=== PATIENT | female | born 1975 | race Caucasian/White ===

== ENCOUNTER 2018-03-20 16:31 | Emergency (ER) | payer BC ==
[2018-03-20 16:54] VITALS: BP 119/69
[2018-03-20] MEDS ORDERED: DEXAMETHASONE SOD PHOS INJ 10 MG/1 ML VIAL IM ONE (17:37)
[2018-03-20] MEDS ORDERED: KETOROLAC TROMETHAMINE INJ/PF 30 MG/1 ML SDV IM ONE (17:37)
--- NOTE | 2018-03-20 18:25 | RADIOLOGY REPORT (SQ) ---
EXAM DESCRIPTION: HIP LEFT AP/LATERAL COMPLETED DATE/TIME: 03/20/2018 6:15 pm REASON FOR STUDY: fall, pain COMPARISON: None. NUMBER OF VIEWS: Two views. TECHNIQUE: AP pelvis and additional frog-leg view of the left hip. LIMITATIONS: None. FINDINGS: MINERALIZATION: Normal. LEFT HIP: No fracture or dislocation. No worrisome bone lesions. RIGHT HIP: No fracture or dislocation. No worrisome bone lesions. PUBIS AND ISCHIUM: No fracture. PELVIS: No fracture. SACRUM: No fracture or dislocation. No worrisome bone lesions. LOWER LUMBAR SPINE: No fracture or dislocation. No worrisome bone lesions. No significant disc disea se. SOFT TISSUES: No findings. OTHER: No other significant finding. IMPRESSION: NEGATIVE STUDY OF THE LEFT HIP AND PELVIS. NO RADIOGRAPHIC EVIDENCE OF ACUTE INJURY. TECHNICAL DOCUMENTATION: JOB ID: [id number] [employer]- All Rights Reserved Reading location - IP/workstation name: [email or web address]
--- NOTE | 2018-03-20 19:02 | ER Document Report ---
ED Hip Pain/Injury - General Chief Complaint: Hip Pain Stated Complaint: FALL/HIP PAIN Time Seen by Provider: 03/20/18 17:26 Notes: Patient is a healthy 42-year-old female complaining of left hip pain 1 month. Patient reports that she was riding a half her board when she fell backwards landing on her left buttock and hip. Patient has been having pain since the fall. Pain is exaggerated with any hip movement. She has had no fever, no radiculopathy, no bowel or bladder change. No previous history of back pain TRAVEL OUTSIDE OF THE [place] IN LAST 30 DAYS: No - HPI Patient complains to provider of: Injury Onset/Duration: Constant, Persistent Quality of pain: Achy, Sharp Symptoms prior to fall: None Symptoms since fall: None Skin Color: Normal Skin Temperature: Warm Rotation of extremity: None Pain with palpation of the pelvis: No - Related Data Allergies/Adverse Reactions: No Known Allergies Allergy (Verified 03/20/18 16:32) Past Medical History - General Information source: Patient - Social History Smoking Status: Current Every Day Smoker Chew tobacco use (# tins/day): No Frequency of alcohol use: Occasional Drug Abuse: None Lives with: Family Family History: Arthritis, CAD, COPD, CVA, DM, Hyperlipidemia, Hypertension, Malignancy, Thyroid Disfunction Patient has suicidal ideation: No Patient has homicidal ideation: No - Medical History Medical History: Negative Renal/ Medical History: Reports: Hx Ovarian Cysts. Denies: Hx Peritoneal Dialysis Past Surgical History: Reports: Hx Cholecystectomy, Hx Genitourinary Surgery - Urethral diverticulum removed, Hx Tubal Ligation - Immunizations Immunizations up to date: Yes Hx Diphtheria, Pertussis, Tetanus Vaccination: Yes Review of Systems - Review of Systems Constitutional: No symptoms reported EENT: No symptoms reported Cardiovascular: No symptoms reported Respiratory: No symptoms reported Gastrointestinal: No symptoms reported Genitourinary: No symptoms reported Female Genitourinary: No symptoms reported Skin: No symptoms reported Hematologic/Lymphatic: No symptoms reported Neurological/Psychological: No symptoms reported Physical Exam - Vital signs Vitals: Temp Pulse Resp BP Pulse Ox 98.3 F 77 20 119/69 98 03/20/18 16:52 03/20/18 16:52 03/20/18 16:52 03/20/18 16:52 03/20/18 16:52 Interpretation: Normal - General General appearance: Appears well, Alert - HEENT Head: Normocephalic, Atraumatic Eyes: Normal Pupils: PERRL - Respiratory Respiratory status: No respiratory distress Chest status: Nontender Breath sounds: Normal Chest palpation: Normal - Cardiovascular Rhythm: Regular Heart sounds: Normal auscultation Murmur: No - Abdominal Inspection: Normal Distension: No distension Bowel sounds: Normal Tenderness: Nontender Organomegaly: No organomegaly - Back Back: Normal, Nontender - Extremities General upper extremity: Normal inspection, Nontender, Normal color, Normal ROM , Normal temperature Hip: Tender - focal tenderness over left inguinal muscles and left gluteus medius or minimus. there is tenderness directly over the left trochanteric bursa , with pain elicited by any active or passive range of motion. distal SMC intact - Neurological Neuro grossly intact: Yes Cognition: Normal Orientation: AAOx4 Apolinar Coma Scale Eye Opening: Spontaneous Apolinar Coma Scale Verbal: Oriented [place] Coma Scale Motor: Obeys Commands [place] Coma Scale Total: 15 Speech: Normal Motor strength normal: LUE, RUE, LLE, RLE Sensory: Normal - Psychological Associated symptoms: Normal affect, Normal mood - Skin Skin Temperature: Warm Skin Moisture: Dry Skin Color: Normal Course - Re-evaluation Re-evalutation: 03/20/18 19:12 history and physical is most consistent with an inflammation process of the iliopsoas or greater trochanter. There is no infectious process identified. No circulatory compromise. Patient was medicated with Toradol and Decadron here in the emergency department. Patient had good results with medication. X- rays are negative. These results were discussed with the patient. Patient prescribed anti-inflammatory medicine and short course of oral steroids which she was instructed to start on Wednesday. Patient was also given follow-up information for orthopedic evaluation. Home care, ED return precautions were discussed with the patient. Patient is agreeable with plan is stable for discharge - Vital Signs Vital signs: Temp Pulse Resp BP Pulse Ox 98.3 F 77 20 119/69 98 03/20/18 16:52 03/20/18 16:52 03/20/18 16:52 03/20/18 16:52 03/20/18 16:52 Discharge - Discharge Clinical Impression: Left hip pain Condition: Stable Disposition: HOME, SELF-CARE Instructions: Bursitis ([facility]), Toradol Injection ([facility]), Steroid Medication Injection, Steroid Medication Additional Instructions: Your hip x-ray is negative for fracture Your pain is most likely caused from inflammation around your hip joint You received an injection of Toradol and Decadron today to help with inflammation and pain The steroid injection will stay in her system for 3 days fighting inflammation During these 3 days do not take any of your prescription prednisone You may take the ibuprofen as prescribed I recommend further evaluation with the orthopedist [facility] [address], [address] [place] [address] Prescriptions: Ibuprofen [Motrin 800 Mg Tablet] 800 mg PO Q6H #20 tablet Prednisone [Deltasone 10 mg Tablet] 10 mg PO ASDIR PRN #21 tablet PRN Reason: Forms: Return to Work Referrals: MAEGAN TOMLIN NP [Primary Care Provider] - Follow up as needed
== END 2018-03-20 19:27 | disposition home or self-care (01) ==
LOC: ER 16:31
DX: M25.552 Pain in left hip (principal); V00.181A Fall from other rolling-type pedestrian conveyance, initial encounter; F17.200 Nicotine dependence, unspecified, uncomplicated; Z90.49 Acquired absence of other specified parts of digestive tract; Z98.51 Tubal ligation status
CPT/HCPCS: 99283; 96372; 73502; J1885; J1100

== ENCOUNTER → 2018-10-12 | Outpatient (CLI) | payer BC ==
--- NOTE | 2018-10-14 16:55 | RADIOLOGY REPORT (SQ) ---
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 The route of agent administration: Intravenous. ADDITIONAL DRUGS AND DOSES: None. TECHNIQUE: Routine delayed images at 3 hours post radionuclide injection acquired of the bony skelet on including anterior and posterior whole-body projections and additional focused images as needed. LIMITATIONS: None. FINDINGS: BONES: Normal visualization without areas of photopenia or increased bony uptake of radiop harmaceutical. In particular, no increased uptake is seen over the left proximal femur intertrochant ivan region. KIDNEYS: Symmetric excretion without obstruction. OTHER: No other significant finding. IMPRESSION: NORMAL BONE SCAN. COMMENT: Quality measure 147: Current bone scan is compared with any available plain radiographs, p rior bone scans, and CT/MRI. TECHNICAL DOCUMENTATION: JOB ID: [id number] [employer]- All Rights Reserved Reading location - IP/workstation name: [email or web address]
== END ==
LOC: RAD 09:03
PROVIDERS: ATTEND Family Medicine
DX: D49.2 Neoplasm of unspecified behavior of bone, soft tissue, and skin (principal)
CPT/HCPCS: 78306; A9561; Q9969

== ENCOUNTER 2018-10-22 12:39 | Emergency (ER) | payer BC ==
[2018-10-22 12:51] VITALS: BP 128/80
[2018-10-22] MEDS ORDERED: LIDOCAINE 5% (700 MG) TRANSDERMAL ADH..PATCH TP ONE (12:54)
[2018-10-22] MEDS ORDERED: KETOROLAC TROMETHAMINE 60 MG/2 ML SDV IM ONE ×2 (12:54→13:30)
--- NOTE | 2018-10-22 12:55 | ER Document Report ---
HPI - HPI Time Seen by Provider: 10/22/18 12:49 Pain Level: 4 Context: Patient is a 43-year-old female who presents to the emergency department with a chief complaint of left hip pain that radiates down her left leg. She was on a hover board 5 months ago and fell off a hover board. She has been seeing [facility] for physical therapy. She states that last time she was here she received 2 shots helped with her pain. She denies any loss of bladder or bowel function, she is able to walk, denies fever, denies any weakness. She does drive long distances and sits for long period of time. She denies any recent trauma. - CONSTITUTIONAL Constitutional: DENIES: Fever, Chills - NEURO Neurology: DENIES: Headache - REPRODUCTIVE Reproductive: DENIES: : - MUSCULOSKELETAL Musculoskeletal: REPORTS: Extremity pain - Right hip; right leg. DENIES: Swelling - DERM Skin Color: Normal Skin Problems: None Past Medical History - General Information source: Patient - Social History Smoking Status: Current Every Day Smoker Family History: Arthritis, CAD, COPD, CVA, DM, Hyperlipidemia, Hypertension, Malignancy, Thyroid Disfunction Renal/ Medical History: Reports: Hx Ovarian Cysts. Denies: Hx Peritoneal Dialysis Past Surgical History: Reports: Hx Cholecystectomy, Hx Genitourinary Surgery - Urethral diverticulum removed, Hx Tubal Ligation - Immunizations Immunizations up to date: Yes Hx Diphtheria, Pertussis, Tetanus Vaccination: Yes Vertical Provider Document - CONSTITUTIONAL Agree With Documented VS: Yes Exam Limitations: No Limitations - INFECTION CONTROL TRAVEL OUTSIDE OF THE [place] IN LAST 30 DAYS: No - HEENT HEENT: Atraumatic, Normocephalic - NECK Neck: Normal Inspection - RESPIRATORY Respiratory: No Respiratory Distress - CARDIOVASCULAR Cardiovascular: Regular Rate Pulses: Normal: Radial, Dorsalis pedis - MUSCULOSKELETAL/EXTREMETIES Musculoskeletal/Extremeties: Tender - left hip at buttock, consistent with sciatic pain - NEURO Level of Consciousness: Awake, Alert, Appropriate Motor/Sensory: No Motor Deficit, No Sensory Deficit Deep Tendon Reflexes: 2+ - DERM Integumentary: Warm, Dry Course - Re-evaluation Re-evalutation: 10/22/18 13:32 Differential diagnosis for hip pain includes muscle spasm, muscle strain, slipped disc cauda equina syndrome, vertebral fracture, vertebral tumor, epidural abscess, pyelonephritis, or AAA. Based on history and exam, the most likely etiology of the patient's back pain is chronic due to her however board accident. Emergent MRI is not indicated at this time because the patient does not have new weakness, or cauda equina syndrome. Patient does not have bladder or bowel dysfunction. Patient does not have history of IV drug use, therefore, I do not suspect an epidural abscess. Patient does not have recent weight loss or night sweats, and does not have a known history of cancer. She will receive Toradol and Decadron here in the emergency department. Follow- up precautions were given. Verbal discharge instructions were given to the patient. They verbalized understanding. They are stable for discharge. - Vital Signs Vital signs: Temp Pulse Resp BP Pulse Ox 98.4 F 104 H 16 128/80 H 97 10/22/18 12:44 10/22/18 12:44 10/22/18 12:44 10/22/18 12:44 10/22/18 12:44 Discharge - Discharge Clinical Impression: Sciatic nerve pain Qualifiers: Laterality: left Qualified Code(s): M54.32 - Sciatica, left side Condition: Stable Disposition: HOME, SELF-CARE Additional Instructions: You were seen today in the emergency department for hip pain. Your hip pain is most consistent with sciatic nerve pain. You may take ibuprofen 600 mg and acetaminophen 1000 mg every 6 hours as needed for the pain. You may also buy [id number] Aspercreme with lidocaine and apply to the area per box instructions. If you develop a fever greater than 100.4 F, lose bowel or bladder function, are unable to walk, or have any symptoms that are worrisome to you, please return to the emergency department. Please continue to see the [facility] in regards to your hip pain. Forms: Return to Work Referrals: ANGELICA SMITH MD [COMMUNITY BASED STAFF] - Follow up as needed
[2018-10-22] MEDS ORDERED: DEXAMETHASONE SOD PHOS INJ 10 MG/1 ML VIAL IM ONE (13:30)
== END 2018-10-22 13:52 | disposition home or self-care (01) ==
LOC: ER 12:39
DX: M54.32 Sciatica, left side (principal); F17.200 Nicotine dependence, unspecified, uncomplicated
CPT/HCPCS: 99283; 96372; J1885; J1100

== ENCOUNTER → 2019-12-07 | Outpatient (CLI) | payer OTHER ==
--- NOTE | 2019-12-07 12:40 | RADIOLOGY REPORT (SQ) ---
EXAM DESCRIPTION: NM PARATHYROID IMAGING IMAGES COMPLETED DATE/TIME: 12/07/2019 11:17 am REASON FOR STUDY: PRIMARY HYPERPARATHYROIDISM (E21.0) E21.0 PRIMARY HYPERPARATHYROIDISM COMPARISON: None. RADIONUCLIDE AND DOSE: 21.2 millicuries Tc-99m Sestamibi. The route of agent administration: Intravenous ADDITIONAL DRUGS AND DOSES: None. TECHNIQUE: Early and delayed images of the neck acquired following radionuclide administration. LIMITATIONS: None. FINDINGS: Thyroid: Normal size. Homogeneous activity. Normal washout. No focal lesions. Parathyroid: Persistent retained activity in the lower left lobe of the thyroid. Other: No other significant findings. IMPRESSION: PERSISTENT RETAINED ACTIVITY IN THE LOWER LEFT LOBE OF THE THYROID CONSISTENT WITH A PAR ATHYROID ADENOMA. TECHNICAL DOCUMENTATION: JOB ID: [id number] [employer]- All Rights Reserved Reading location - IP/workstation name: [email or web address]
== END ==
LOC: RAD 07:49
PROVIDERS: ATTEND Surgery
DX: D35.1 Benign neoplasm of parathyroid gland (principal); E21.0 Primary hyperparathyroidism
CPT/HCPCS: 78070; A9500; Q9969